=== PATIENT | male | born 1980 | race Caucasian/White ===

== ENCOUNTER 2017-07-11 21:55 | Emergency (ER) | payer SELFPAY ==
--- NOTE | 2017-07-11 22:53 | C.PDOC ---
History Of Present Illness Patient presents to the ER with a complaint of a sharp, stabbing right flank pain that radiates to the groin. Patient states he has a Hx of kidney stones and states the pain feels similar to previous episodes. Denies fever or chills. Time Seen by Provider: 07/11/17 22:52 Chief Complaint (Nursing): Back Pain History Per: Patient History/Exam Limitations: no limitations Onset/Duration Of Symptoms: Hrs Current Symptoms Are (Timing): Still Present Quality Of Discomfort: Sharp, Stabbing Severity: Moderate Pain Scale Rating Of: 5 Previous Symptoms: None Associated Symptoms: None Recent travel outside of the [place]: No Past Medical History Reviewed: Historical Data, Nursing Documentation, Vital Signs Vital Signs: Last Vital Signs Temp 99.1 F 07/12/17 01:41 Pulse 94 H 07/12/17 01:41 Resp 18 07/12/17 01:41 BP 123/76 07/12/17 01:41 Pulse Ox 98 07/12/17 01:41 - Medical History PMH: Kidney Stones Surgical History: No Surg Hx Family History: States: Unknown Family Hx - Social History Hx Alcohol Use: No Hx Substance Use: No Review Of Systems Constitutional: Negative for: Fever, Chills Gastrointestinal: Negative for: Nausea, Vomiting, Abdominal Pain Musculoskeletal: Positive for: Back Pain (Right flank) Physical Exam - Physical Exam Appears: Non-toxic Skin: Warm, Dry Head: Normacephalic Oral Mucosa: Moist Chest: Symmetrical Cardiovascular: Rhythm Regular Respiratory: No Rales, No Rhonchi, No Wheezing Gastrointestinal/Abdominal: Soft, No Tenderness Back: Other (Right flank tenderness) Neurological/Psych: Oriented x3 ED Course And Treatment - Laboratory Results Result Diagrams: 07/11/17 23:05 07/11/17 23:05 O2 Sat by Pulse Oximetry: 98 Pulse Ox Interpretation: Normal Progress Note: Blood work and urinalysis ordered. Flomax, toradol, zofran, and IV fluids administered. Reevaluation Time: 02:02 Reassessment Condition: Improved Disposition Counseled Patient/Family Regarding: Studies Performed, Diagnosis, Need For Followup, Rx Given - Disposition Referrals: Jimmy Syed MD [Staff Provider] - Disposition: HOME/ ROUTINE Disposition Time: 22:52 Condition: FAIR Prescriptions: Naproxen [Naprosyn] 1 tab PO BID PRN #25 tab PRN Reason: Pain Ondansetron ODT [Zofran ODT] 1 odt PO BID PRN #6 odt PRN Reason: Nausea/Vomiting oxyCODONE/Acetaminophen [Percocet 5/325 mg Tab] 1 tab PO TID PRN #10 tab PRN Reason: Pain Tamsulosin [Flomax] 0.4 mg PO DAILY #15 cap Instructions: Renal Colic (ED), Kidney Stones (DC), How to Strain Your Urine ( ED) Forms: [employer] (Armenian) - Clinical Impression Clinical Impression: Kidney stone on right side, Renal colic on right side - Scribe Statement The provider has reviewed the documentation as recorded by the Scribe Ha De Los Santos All medical record entries made by the Nabeelibgeovanny were at my direction and personally dictated by me. I have reviewed the chart and agree that the record accurately reflects my personal performance of the history, physical exam, medical decision making, and the department course for this patient. I have also personally directed, reviewed, and agree with the discharge instructions and disposition.
[2017-07-11] MEDS ORDERED: Sodium Chloride 0.9% 2,000 ML IV ONE (22:55)
[2017-07-11 23:08] LABS: BASO # 0.1 K/uL (0.0-0.2); BASO % 0.7 % (0.0-2.0); EOS # 0.1 K/uL (0.0-0.7); EOS % 0.9 % (0.0-4.0); HEMATOCRIT 44.6 % (35.0-51.0); LYMPH # 2.6 K/uL (1.0-4.3); LYMPH % 23.9 % (20.0-40.0); MEAN CELL VOLUME 85.2 fL (80.0-94.0); MEAN CORPUSCULAR HEMOGLOBIN 29.8 pg (27.0-31.0); MEAN CORPUSCULAR HGB CONC 34.9 g/dL (33.0-37.0); MONO # 0.9 K/uL (0.0-0.8); NRBC % 0.1 % (0.0-2.0); RED CELL DISTRIBUTION WIDTH 13.8 % (11.5-14.5); WHITE BLOOD COUNT 10.9 K/uL (4.8-10.8)
[2017-07-11 23:18] LABS: CHLORIDE 99 mmol/L (98-107)
[2017-07-11 23:19] LABS: SODIUM 142 mmol/L (132-148)
[2017-07-11 23:21] LABS: ALB/GLOB RATIO 1.4 (1.0-2.1); ALKALINE PHOSPHATASE 76 U/L (38-126); ALT/SGPT 57 U/L (21-72); AST/SGOT 27 U/L (17-59); BILIRUBIN,TOTAL 1.5 mg/dL (0.2-1.3); BLOOD UREA NITROGEN 17 mg/dL (9-20); CARBON DIOXIDE 25 mmol/L (22-30); GFR AFRICAN-AMERICAN > 60; GLUCOSE,RANDOM 108 mg/dL (75-110)
[2017-07-11 23:22] LABS: CALCIUM 9.1 mg/dl (8.6-10.4)
[2017-07-11 23:38] VITALS: O2SAT 98
[2017-07-12 00:36] LABS: RBC URINE 9 /hpf (0-3); URINE BACTERIA RARE (<OCC); URINE BILIRUBIN NEGATIVE (NEGATIVE); URINE BLOOD 2+ (NEGATIVE); URINE COLOR Yellow (YELLOW); URINE GLUCOSE (UA) NORMAL (Normal); URINE KETONE NEGATIVE (NEGATIVE); URINE LEUKOCYTE ESTERASE NEG Leu/uL (Negative); URINE PROTEIN NEGATIVE (NEGATIVE); URINE UROBILINOGEN NORMAL mg/dL (0.2-1.0); WBC URINE 1 /hpf (0-5)
--- NOTE | 2017-07-12 01:42 | CT ---
EXAM: CT Abdomen and Pelvis Without Intravenous Contrast EXAM DATE/TIME: 07/12/2017 12:11 AM CLINICAL HISTORY: 36 years old, male; Pain; Abdominal pain and other: Lower back pain; Additional info: R flank pain TECHNIQUE: Axial computed tomography images of the abdomen and pelvis without intravenous contrast. All CT scans at this facility use one or more dose reduction techniques, viz.: automated exposure control; ma/kV adjustment per patient size (including targeted exams where dose is matched to indication; i.e. head); or iterative reconstruction technique. Coronal and sagittal reformatted images were created and reviewed. COMPARISON: There are no prior studies for comparison. FINDINGS: Lower thorax: Heart size is normal. There is a small hiatal hernia. There is minimal atelectasis at the lung bases ABDOMEN: Liver: unremarkable Gallbladder and bile ducts: unremarkable Pancreas: unremarkable Spleen: unremarkable Adrenals: unremarkable Kidneys and ureters: There is obstructive uropathy on the right. There is a 3.7 mm obstructing distal right ureteral stone just proximal to the ureterovesical junction. There is a nonobstructing left renal stone.Left kidney and ureter are otherwise unremarkable. Stomach and bowel: Stomach is partially distended. Rotation is normal. Proximal small bowel is mildly distended with fluid and air. There are scattered air-fluid levels. Distention decreases distally.Appendix and terminal ileum are unremarkable.Colon is incompletely distended which limits evaluation. There is scattered diverticulosis Appendix: See above. PELVIS: Bladder: Urinary bladder is partially distended. Reproductive: Seminal vesicles and prostate are unremarkable. ABDOMEN and PELVIS: Intraperitoneal space: There is no free air or free fluid. Bones/joints: There are degenerative changes in the osseus structures. Soft tissues: There is mild rectus diastases.There is a small fat containing umbilical hernia. Vasculature: Vascular structures are unremarkable. Lymph nodes: There is no pathologic adenopathy. IMPRESSION: 3.7 mm obstructing distal right ureteral stone; tiny nonobstructing left renal stone Additional findings as described above.
[2017-07-12 01:43] VITALS: BP 123/76; TEMP 99.1
[2017-07-12 03:38] VITALS: PULSE 97; RESP 17
== END 2017-07-12 02:10 | disposition home or self-care (01) ==
LOC: C.ER 21:55
DX: N20.0 Calculus of kidney (principal); Z87.442 Personal history of urinary calculi
CPT/HCPCS: 74176; 80053; 81001; 83690; 85025; 96374; 96375; 99284; J1885; J2405; J7040